=== PATIENT | female | born 1990 | race Caucasian/White ===

== ENCOUNTER 2017-01-15 10:36 | Observation (INO) | payer OTHER ==
[~2017-01-15] VITALS: Ht 160 cm; Wt 62.7 kg
[~2017-01-15 10:36] MED LIST: NOCURR
[2017-01-15 10:50] LABS: BASOPHILS % (AUTO) 0.3 % (0.0-2.0); EOSINOPHILS % (AUTO) 0 % (1.0-6.0); HEMOGLOBIN 11.4 g/dL (12.0-16.0); LYMPHOCYTES # (AUTO) 1.3 K/uL (1.0-4.8); LYMPHOCYTES % (AUTO) 11.2 % (22.0-44.0); MEAN CORPUSCULAR HEMOGLOBIN 29.3 pg (26.0-34.0); MEAN CORPUSCULAR HGB CONC 32.5 G/dL (31.0-37.0); MEAN CORPUSCULAR VOLUME 90 fL (80-100); MONOCYTES # (AUTO) 0.4 K/uL (0.1-1.0); MONOCYTES % (AUTO) 3.4 % (2.0-9.0); NEUTROPHILS # (AUTO) 9.7 K/uL (1.8-7.7); NEUTROPHILS % (AUTO) 85.1 % (40.0-70.0); PLATELET COUNT (AUTO) 239 K/uL (150-450); RED BLOOD CELL COUNT(AUTO) 3.88 MIL/uL (4.00-5.20); RED CELL DISTRIBUTION WIDTH 13.9 % (11.5-14.5); WHITE BLOOD COUNT (AUTO) 11.4 K/uL (4.5-11.0)
[2017-01-15 11:14] LABS: ANION GAP 21 mmol/L (8-16); CALCIUM, TOTAL 8.6 mg/dL (8.8-10.5); CARBON DIOXIDE 16 mmol/L (22-29); CHLORIDE 98 mmol/L (98-107); CREATININE 0.63 mg/dL (0.60-1.30); GLOMERULAR FILTR. RATE CALC > 60 mL/min (>60); POTASSIUM 3.4 mmol/L (3.5-5.1); SODIUM SERUM 135 mmol/L (136-145); UREA NITROGEN, BLOOD 6 mg/dL (7-18)
[2017-01-15 11:22] LABS: ALANINE AMINOTRANSFERASE 25 U/L (12-78); ALBUMIN 3.3 g/dL (3.4-5.0); ASPARTATE AMINOTRANSFERASE 18 U/L (15-37); BILIRUBIN,TOTAL 0.5 mg/dL (0.1-1.0); TOTAL PROTEIN, SERUM 7.7 g/dL (6.4-8.2)
[2017-01-15] MEDS ORDERED: DiphenhydrAMINE HCL 25 MG CAPSULE PO PRN (12:15)
[2017-01-15 16:50] VITALS: BP 136/79
[2017-01-15] MEDS ORDERED: RINGERS SOLUTION,LACTATED 1,000 ML IV ONE (19:45)
[2017-01-15] MEDS ORDERED: CALCIUM CARBONATE 500 MG CHEWABLE TABLET CHEW ONE (20:15)
[2017-01-15] MEDS ORDERED: FAMOTIDINE 10 MG/ML 2 ML VIAL IVP ONE (20:15)
[2017-01-15] MEDS ORDERED: ONDANSETRON HCL 4 MG/2 ML VIAL IVP SCH (21:00)
[2017-01-16] MEDS ORDERED: RINGERS SOLUTION,LACTATED 1,000 ML IV ONE (14:21)
== END 2017-01-16 00:34 | disposition home or self-care (01) ==
LOC: EMS 10:37 → EEVIPCON 10:37 → 4S 17:15 → UNDOADMOB 17:15 → INTOOBSV 17:15 → EMS 18:11
PROVIDERS: ADMIT Obstetrics & Gynecology; ATTEND Obstetrics & Gynecology
DX: O99.342 Other mental disorders complicating pregnancy, second trimester (principal); F32.9 Major depressive disorder, single episode, unspecified; F29 Unspecified psychosis not due to a substance or known physiological condition; O99.325 Drug use complicating the puerperium; F12.90 Cannabis use, unspecified, uncomplicated; R45.851 Suicidal ideations; O21.0 Mild hyperemesis gravidarum; Z3A.23 23 weeks gestation of pregnancy
CPT/HCPCS: 36415; 59025; 76811; 80053; 80307; 85025; 96374; 96375; 99285; G0378 ×2; G0480; J2405; J3490; J7120; 96360